=== PATIENT | female | born 1970 | race African-American/Black ===

== ENCOUNTER 2016-10-21 15:54 | Emergency (ER) | payer SELFPAY ==
[~2016-10-21] VITALS: Ht 165.1 cm; Wt 99.8 kg
[2016-10-21 16:03] VITALS: BP 113/67
== END 2016-10-21 16:22 | disposition home or self-care (01) ==
LOC: ER 15:56
DX: R09.81 Nasal congestion (principal)
CPT/HCPCS: 99283; A4606; Z7610

== ENCOUNTER 2016-11-01 17:39 | Emergency (ER) | payer SELFPAY ==
[~2016-11-01] VITALS: Ht 152.4 cm; Wt 72.6 kg
[2016-11-01 18:04] VITALS: BP 122/75
== END 2016-11-01 18:53 | disposition home or self-care (01) ==
LOC: ER 17:45
DX: J30.9 Allergic rhinitis, unspecified (principal)
CPT/HCPCS: A4606; A6403; Z7610